=== PATIENT | male | born 1995 | race Caucasian/White ===

== ENCOUNTER 2017-09-10 10:03 | Emergency (ER) | payer BC ==
[2017-09-10] MEDS ORDERED: Metoclopramide 10 MG/2 ML SDV IM ONE (10:37)
[2017-09-10] MEDS ORDERED: Alum Hydrox/Mag Hydrox/Simeth 15 ML, Lidocaine 2% 15 ML PO ONE ×2 (10:38)
--- NOTE | 2017-09-10 10:43 | EDM.PDOC ---
ED HPI GENERAL MEDICAL PROBLEM - General Chief Complaint: Gastrointestinal Problem Stated Complaint: VOMITING Time Seen by Provider: 09/10/17 10:25 Source of Information: Reports: Patient, Family, RN History Limitations: Reports: No Limitations - History of Present Illness INITIAL COMMENTS - FREE TEXT/NARRATIVE: 21 yo male drank heavily one night this past weekend. When he got home he vomited red, but thought it was from the grenadine in the shots(now wonders if it might have been blood). Since then he has vomited a couple times with coffee ground appearance. Not dizzy with standing. Stools have been dark from time to time for a couple yrs. No diarrhea. Abdominal pain upper and LLQ. Here from work with his . No coffee today. Onset Date: 09/06/17 Duration: Day(s):, Intermittent, Waxing/Waning. No: Resolved Prior to Arrival Location: Reports: Abdomen Quality: Reports: Ache Severity: Moderate Improves with: Reports: None Worsens with: Reports: None Context: Reports: Other (heavy drinking late Thursday night. ) Associated Symptoms: Reports: Nausea/Vomiting (no nausea). 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) (none) Upper Abdomen Pain Score (Numeric/FACES): 6 - Related Data Allergies Allergy/AdvReac Type Severity Reaction Status Date / Time No Known Allergies Allergy Verified 09/10/17 10:17 Home Meds: Home Meds Famotidine 40 mg PO DAILY #30 tablet 09/10/17 [Rx] PARoxetine [Paxil] 20 mg PO DAILY 09/10/17 [History] Past Medical History Gastrointestinal History: Reports: Irritable Bowel Syndrome Musculoskeletal History: Reports: Fracture Other Musculoskeletal History: tib fib femur fx yudelka plate r hand Neurological History: Reports: Seizure Psychiatric History: Reports: Other (See Below) Other Psychiatric History: sleep disorder - Past Surgical History GI Surgical History: Reports: Appendectomy, Cholecystectomy, Colonoscopy, EGD Social & Family History - Tobacco Use Smoking Status *Q: Never Smoker Second Hand Smoke Exposure: No - Caffeine Use Caffeine Use: Reports: Coffee, Soda - Alcohol Use Days Per Week of Alcohol Use: 0 - Recreational Drug Use Recreational Drug Use: No ED ROS GENERAL - Review of Systems Review Of Systems: See Below Constitutional: Reports: No Symptoms HEENT: Reports: No Symptoms Respiratory: Reports: No Symptoms Cardiovascular: Reports: No Symptoms GI/Abdominal: Reports: Abdominal Pain, Black Stool, Hematemesis, Vomiting. Denies: Bloody Stool, Constipation, Diarrhea, Hematochezia, Nausea : Reports: No Symptoms Musculoskeletal: Reports: No Symptoms Skin: Reports: No Symptoms Neurological: Reports: No Symptoms ED EXAM, GI/ABD - Physical Exam Exam: See Below Exam Limited By: No Limitations General Appearance: Alert, WD/WN, No Apparent Distress Eyes: Bilateral: Normal Appearance Ears: Normal External Exam, Normal Canal, Hearing Grossly Normal, Normal TMs Nose: Normal Inspection, Normal Mucosa, No Blood Throat/Mouth: Normal Inspection, Normal Lips, Normal Oropharynx, Normal Voice, No Airway Compromise Head: Atraumatic, Normocephalic Neck: Normal Inspection, Supple Respiratory/Chest: No Respiratory Distress, Lungs Clear, Normal Breath Sounds, No Accessory Muscle Use Cardiovascular: Regular Rate, Rhythm, No Edema GI/Abdominal Exam: Normal Bowel Sounds, Soft, Tender (epigastrium and LLQ, no rebound or guarding. Normal BS.) Back Exam: Normal Inspection. No: CVA Tenderness (R), CVA Tenderness (L) Extremities: Normal Inspection, Normal Range of Motion, Non-Tender, No Pedal Edema Neurological: Alert, Oriented, CN II-XII Intact, Normal Cognition Psychiatric: Normal Affect, Normal Mood Skin Exam: Warm, Dry, Intact, Normal Color, No Rash Lymphatic: No Adenopathy Course - Vital Signs Last Recorded V/S: Last Vital Signs Temp 35.7 C 09/10/17 10:25 Pulse 73 09/10/17 10:25 Resp 16 09/10/17 10:25 BP 120/66 09/10/17 10:25 Pulse Ox 98 09/10/17 10:25 Orthostatic Blood Pressure [ 127/76 Standing] Orthostatic Blood Pressure [ 130/82 Sitting] Orthostatic Blood Pressure [ 127/79 Supine] - Orders/Labs/Meds Orders: Active Orders 24 hr Category Date Time Status Orthostatic Vital Signs [RC] ASDIRECTED Care 09/10/17 10:37 Active Hemoccult [OCCULT BLOOD DIAGNOSTIC] [OP] Stat Lab 09/10/17 11:21 Ordered Labs: Laboratory Tests 09/10/17 Range/Units 10:43 Hgb 14.8 (12.0-15.0) g/dL Meds: Medications Discontinued Medications Generic Name Dose Route Start Last Admin Trade Name Melody PRN Reason Stop Dose Admin Al Hydroxide/Mg Hydroxide 15 0 ml 09/10/17 10:38 09/10/17 10:48 ml/ Lidocaine HCl 15 ml PO 09/10/17 10:39 30 ml ONETIME ONE Administration Metoclopramide HCl 10 mg 09/10/17 10:37 09/10/17 10:47 Reglan IM 09/10/17 10:38 10 mg ONETIME ONE Administration Departure - Departure Time of Disposition: 11:31 Disposition: Home, Self-Care 01 Condition: Good Clinical Impression: Gastritis Qualifiers: Gastritis type: superficial Chronicity: acute Gastritis bleeding: without bleeding Qualified Code(s): K29.00 - Acute gastritis without bleeding - Discharge Information Prescriptions: Famotidine 40 mg PO DAILY #30 tablet Referrals: PCP,None [Primary Care Provider] - Forms: ED Department Discharge, ED Return to Work/School Form Additional Instructions: Take famotidine every 24 hrs starting right away. You may use acetaminophen up to 1000 mg every 6 hrs for pain relief. You may also use Maalox 30 ml after meals and at bedtime if needed for epigastric pain. Avoid all of the following: ibuprofen, Aleve, caffeine, carbonated beverages, alcohol, and tobacco. Recheck in the clinic in a week, sooner if worse. - My Orders Last 24 Hours: My Active Orders 09/10/17 10:37 Orthostatic Vital Signs [RC] ASDIRECTED 09/10/17 11:21 Hemoccult [OCCULT BLOOD DIAGNOSTIC] [OP] Stat - Assessment/Plan Last 24 Hours: My Active Orders 09/10/17 10:37 Orthostatic Vital Signs [RC] ASDIRECTED 09/10/17 11:21 Hemoccult [OCCULT BLOOD DIAGNOSTIC] [OP] Stat
== END 2017-09-10 11:38 | disposition home or self-care (01) ==
LOC: JP.ED 10:03
DX: K29.00 Acute gastritis without bleeding (principal)
CPT/HCPCS: 36415; 82272; 85018; 96372; 99284; A9270; J2765

== ENCOUNTER 2018-08-24 21:54 | Emergency (ER) | payer BC ==
[2018-08-24] MEDS ORDERED: methylPREDNISolone Sodium Succinate 40 MG/1 ML SDV IVPUSH ONE (22:29)
[2018-08-24] MEDS ORDERED: Ketorolac 30 MG/ML SDV IVPUSH ONE (22:29)
[2018-08-24] MEDS ORDERED: Sodium Chloride 0.9% 1,000 ML IV SCH (22:30)
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
--- NOTE | 2018-08-24 23:17 | CRLCT ---
INDICATION: Worst headache of life. Syncope. Possible seizure. COMPARISON: None available. TECHNIQUE: CT examination of the head was performed with 3 mm thick axial sections without intravenous contrast. Images were obtained from the vertex of the skull through the skull base, and I examined the images with the brain and bone windows. Please note that all CT scans at this facility use dose modulation, iterative reconstruction, and/or weight-based dosing when appropriate to reduce radiation dose to as low as reasonably achievable. FINDINGS: : The brain is normal in appearance for the patient`s age on today`s study, with no sign of mass lesion, mass effect, hemorrhage, or edema. The ventricles and sulci are normal in appearance for the patient`s age. Nothing is seen that would correlate with the history of a possible seizure. There is no sign of any midline developmental abnormality, migrational abnormality, or abnormality of gyral formation or myelination. The medial temporal lobes are normal in appearance. MRI has a higher sensitivity for structural abnormalities related to seizures. The visualized portions of the orbits are normal in appearance. The visualized portions of the paranasal sinuses and mastoids are clear. The osseous structures are normal in their appearance with no sign of abnormality in the skull base or calvarium. IMPRESSION: Normal noncontrast CT of the head for the patient`s age. Nothing seen to correlate with the history of headache or possible seizure. Please note that all CT scans at this facility use dose modulation, iterative reconstruction, and/or weight-based dosing when appropriate to reduce radiation dose to as low as reasonably achievable. Dictated by Christian Zaragoza MD @ Aug 24 2018 11:13PM Signed by Dr. Christian Zaragoza @ Aug 24 2018 11:16PM
== END 2018-08-24 23:28 | disposition home or self-care (01) ==
LOC: JP.ED 21:54
DX: G43.909 Migraine, unspecified, not intractable, without status migrainosus (principal); F17.210 Nicotine dependence, cigarettes, uncomplicated
CPT/HCPCS: 70450; 96361; 96374; 96375; 99284; J1885; J2920; J7030

== ENCOUNTER 2018-08-30 10:21 | Emergency (ER) | payer BC ==
--- NOTE | 2018-08-30 11:34 | EDM.PDOC ---
ED HPI GENERAL MEDICAL PROBLEM - General Chief Complaint: Headache Stated Complaint: HEADACHE Time Seen by Provider: 08/30/18 11:23 Source of Information: Reports: Patient, Family, Old Records, RN Notes Reviewed History Limitations: Reports: No Limitations - History of Present Illness INITIAL COMMENTS - FREE TEXT/NARRATIVE: 22-year-old gentleman presents emergency department day complaint of headache, he describes his headache as mainly in the frontal region it is very intense and light does bother him sound does bother him he has had nausea and vomiting with. This headache is similar to the headache he had last week at which time he is evaluated emergency department thought to be migrainous type CT scan of the head was negative at that time. This particular headache woke him at 5 this morning very intense pain with nausea and vomiting Headache Pain Score (Numeric/FACES): 7 - Related Data Allergies Allergy/AdvReac Type Severity Reaction Status Date / Time No Known Allergies Allergy Verified 08/24/18 22:11 Home Meds: Home Meds NK [No Known Home Meds] 08/24/18 [History] Past Medical History Gastrointestinal History: Reports: Chronic Diarrhea, GERD, Irritable Bowel Syndrome, Other (See Below) Other Gastrointestinal History: inguinal hernia Musculoskeletal History: Reports: Fracture Other Musculoskeletal History: tib fib femur fx yudelka plate r hand Neurological History: Reports: Seizure (As a child) Psychiatric History: Reports: Other (See Below) Other Psychiatric History: sleep disorder Endocrine/Metabolic History: Reports: Obesity/BMI 30+ - Past Surgical History GI Surgical History: Reports: Appendectomy, Cholecystectomy, Colonoscopy, EGD, Hernia, Inguinal Neurological Surgical History: Reports: None Musculoskeletal Surgical History: Reports: ORIF Dermatological Surgical History: Reports: None Social & Family History - Family History Respiratory: Reports: COPD : Reports: Other (See Below) Other Family History: liver disease Neurological: Reports: Migraines (Sister) Endocrine/Metabolic: Reports: Diabetes, Type I, Diabetes, type II Oncologic: Reports: Brain, Colon - Tobacco Use Smoking Status *Q: Never Smoker - Caffeine Use Caffeine Use: Reports: Coffee, Soda, Tea - Recreational Drug Use Recreational Drug Use: No ED ROS GENERAL - Review of Systems Review Of Systems: See Below Constitutional: Denies: Fever, Chills HEENT: Reports: Eye Pain, Other (Photophobia phonophobia) Respiratory: Reports: No Symptoms Cardiovascular: Reports: No Symptoms GI/Abdominal: Reports: Nausea, Vomiting Neurological: Reports: Headache - Physical Exam Exam: See Below Exam Limited By: No Limitations General Appearance: Alert, Mild Distress Eye Exam: Bilateral Eye: EOMI, Normal Fundi, PERRL Respiratory/Chest: No Respiratory Distress, Lungs Clear, Normal Breath Sounds, No Accessory Muscle Use Cardiovascular: Regular Rate, Rhythm, No Murmur GI/Abdominal: Soft, Non-Tender Course - Vital Signs Last Recorded V/S: Last Vital Signs Temp 96.6 F 08/30/18 10:35 Pulse 73 08/30/18 10:35 Resp 16 08/30/18 10:35 BP 122/75 08/30/18 10:35 Pulse Ox 98 08/30/18 10:35 - Orders/Labs/Meds Orders: Active Orders 24 hr Category Date Time Status Peripheral IV Care [RC] . DIRECTED Care 08/30/18 11:31 Active Sodium Chloride 0.9% [Saline Flush] Med 08/30/18 11:30 Active 10 ml FLUSH ASDIRECTED PRN Peripheral IV Insertion Adult [OM.PC] Urgent Oth 08/30/18 11:30 Ordered Medication Orders Sodium Chloride (Saline Flush) 10 ml FLUSH ASDIRECTED PRN PRN Reason: Keep Vein Open Last Admin: 08/30/18 12:04 Dose: 10 ml Meds: Medications Generic Name Dose Route Start Last Admin Trade Name Freq PRN Reason Stop Dose Admin Sodium Chloride 10 ml 08/30/18 11:30 08/30/18 12:04 Saline Flush FLUSH 10 ml ASDIRECTED PRN Administration Keep Vein Open Discontinued Medications Generic Name Dose Route Start Last Admin Trade Name Freq PRN Reason Stop Dose Admin Diphenhydramine HCl 25 mg 08/30/18 11:30 08/30/18 11:50 Benadryl IVPUSH 08/30/18 11:31 25 mg ONETIME ONE Administration Lactated Ringer's 1,000 mls @ 999 mls/hr 08/30/18 11:30 08/30/18 11:50 Ringers, Lactated IV 08/30/18 12:30 999 mls/hr BOLUS ONE Administration Ketorolac Tromethamine 30 mg 08/30/18 11:30 08/30/18 11:50 Toradol IVPUSH 08/30/18 11:31 30 mg ONETIME ONE Administration Prochlorperazine Edisylate 5 mg 08/30/18 11:30 08/30/18 11:50 Compazine IVPUSH 08/30/18 11:31 5 mg ONETIME ONE Administration Departure - Departure Time of Disposition: 12:54 Disposition: Home, Self-Care 01 Condition: Good Clinical Impression: Migraine - Discharge Information Referrals: PCP,None [Primary Care Provider] - Forms: ED Department Discharge Additional Instructions: Recommend follow-up primary care in the next 3-5 days for reevaluation of migraine type headaches consider consultation with neurology - My Orders Last 24 Hours: My Active Orders 08/30/18 11:30 Sodium Chloride 0.9% [Saline Flush] 10 ml FLUSH ASDIRECTED PRN Peripheral IV Insertion Adult [OM.PC] Urgent 08/30/18 11:31 Peripheral IV Care [RC] . DIRECTED - Assessment/Plan Last 24 Hours: My Active Orders 08/30/18 11:30 Sodium Chloride 0.9% [Saline Flush] 10 ml FLUSH ASDIRECTED PRN Peripheral IV Insertion Adult [OM.PC] Urgent 08/30/18 11:31 Peripheral IV Care [RC] . DIRECTED Plan: Assessment Acuity = acute Site and laterality = migraine type headache Etiology = unknown etiology Manifestations = photophobia phonophobia and nausea all resolved Location of injury = Home Lab values = none Plan Good improvement with Toradol, IV fluids, Benadryl, Compazine plan is follow-up with primary care in 3-5 days for reevaluation This note was dictated using [employer] voice recognition software please call with any questions on syntax or grammar.
[2018-08-30] MEDS: diphenhydrAMINE 50 MG/ML SDV IVPUSH ONE (11:50)
[2018-08-30] MEDS: Lactated Ringers 1,000 ML IV ONE (11:50)
[2018-08-30] MEDS: Prochlorperazine 10 MG/2 ML SDV IVPUSH ONE (11:50)
[2018-08-30] MEDS: Ketorolac 30 MG/ML SDV IVPUSH ONE (11:50)
[2018-08-30] MEDS: Sodium Chloride 0.9% 10 ML Syringe FLUSH PRN (12:04)
== END 2018-08-30 13:30 | disposition home or self-care (01) ==
LOC: JP.ED 10:21
DX: G43.909 Migraine, unspecified, not intractable, without status migrainosus (principal)
CPT/HCPCS: 96361; 96374; 96375; 99283; J0780; J1200; J1885; J7120